=== PATIENT | male | born 1995 ===

== ENCOUNTER 2021-03-20 12:48 | Emergency (ER) | payer SELFPAY | END 2021-03-20 12:53 | disposition left against medical advice (07) | LOC: ED 12:48 | DX: M79.89 Other specified soft tissue disorders (principal); Z53.21 Procedure and treatment not carried out due to patient leaving prior to being seen by health care provider ==

== ENCOUNTER 2021-04-15 13:16 | Emergency (ER) | payer OTHER ==
[2021-04-15 13:29] VITALS: BP 138/88
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
== END 2021-04-15 14:00 | disposition left against medical advice (07) ==
LOC: ED 13:16
DX: S69.92XA Unspecified injury of left wrist, hand and finger(s), initial encounter (principal); Z91.018 Allergy to other foods; X58.XXXA Exposure to other specified factors, initial encounter; Y93.89 Activity, other specified; Y92.89 Other specified places as the place of occurrence of the external cause; Y99.8 Other external cause status
CPT/HCPCS: 99281